=== PATIENT | female | born 1985 | race Two or more races ===

== ENCOUNTER 2024-06-29 07:15 | Inpatient (IN) | payer OTHER ==
[~2024-06-29] VITALS: Ht 165.1 cm; Wt 84.8 kg
[~2024-06-29 07:15] MED LIST: CODE1TAB37 PO; DERMOPLAST TP; NAPR500T14 PO; TYLENOL-CODEINE1 TAB PO; ZITHROMAX500 MG PO
[2024-06-29 08:30] LABS: HEMATOCRIT 42.9 % (36.0-45.00); HEMOGLOBIN 14.4 g/dL (12.0-15.00); MEAN CELL VOLUME 79.8 fL (80.00-100.00); MEAN CORPUSCULAR HEMOGLOBIN 26.7 pg (27.00-32.0); MEAN CORPUSCULAR HGB CONC 33.5 g/dl (32.0-36.0); PLATELET COUNT 258 K/uL (150-450); RED BLOOD COUNT 5.38 M/uL (4.00-6.00); RED CELL DISTRIBUTION WIDTH 14.6 % (11.5-14.5)
[2024-06-29] MEDS ORDERED: ANIMAL CHEWS1 EACH PO (08:43)
[2024-06-29] MEDS ORDERED: METOTREXATO (08:43)
[2024-06-29] MEDS ORDERED: EC-NAPROSYN500 MG PO (08:47)
[2024-06-29 08:51] VITALS: BP 118/80
[2024-06-29 08:56] LABS: INR 0.98; PARTIAL THROMBOPLASTIN TIME 27.7 SECONDS (22.0-34.0); PROTHROMBIN TIME 10.7 SECONDS (9.0-11.5)
[2024-06-29 08:58] LABS: URINE APPEARANCE Clear; URINE BILIRRUBIN Negative (NEGATIVE); URINE BLOOD Negative; URINE COLOR Yellow; URINE GLUCOSE Negative (NEGATIVE); URINE KETONE Negative (NEGATIVE); URINE LEUKOCYTE Negative; URINE NITRATE Negative; URINE PROTEIN Negative (NEGATIVE); URINE UROBILINOGEN 0.2 E.U./dl
[2024-06-29 09:03] LABS: URINE BACTERIA 1757.5 uL (0.0-1933); URINE RBC 3.8 uL (0.0-20.8); URINE WBC 9.4 uL (0.0-23.2)
[2024-06-29 09:10] LABS: ALBUMIN 3.7 gm/dL (3.4-5.0); BILIRUBIN TOTAL 0.43 mg/dL (0.3-1.2); CALCIUM 9.1 mg/dL (8.5-10.1); CREATININE SERUM 0.55 mg/dL (0.55-1.02); GFR 123.05; GLOBULINA 3.6 G/DL (2.4-3.5); POTASSIUM 4.33 mEq/L (3.5-5.1); TOTAL PROTEIN 7.3 gm/dL (6.4-8.2)
[2024-07-07] MEDS ORDERED: METRONIDAZOLE/SODIUM CHLORIDE 500 MG/100 ML PIGGYBACK IV ONE (08:06)
[2024-07-07] MEDS ORDERED: CEFOXITIN SODIUM 2,000 MG VIAL IV ONE (08:07)
[2024-07-07] MEDS ORDERED: POVIDONE-IODINE 118 ML BOTT TOP ONE (10:36)
[2024-07-07] MEDS ORDERED: RINGERS SOLUTION,LACTATED 1,000 ML IV SCH (14:00)
[2024-07-07] MEDS ORDERED: MORPHINE SULFATE 4 MG/ML CARTRIDGE IV PRN (14:00)
[2024-07-07] MEDS ORDERED: KETOROLAC TROMETHAMINE 30 MG VIAL IV PRN (14:00)
[2024-07-07] MEDS ORDERED: MORPHINE SULFATE 4 MG/ML VIAL IV ONE (14:55)
[2024-07-07] MEDS ORDERED: KETOROLAC TROMETHAMINE 30 MG VIAL ONE (15:49)
[2024-07-07 17:58] LABS: HEMATOCRIT 31.4 % (36.0-45.00); HEMOGLOBIN 10.2 g/dL (12.0-15.00); MEAN CELL VOLUME 81.8 fL (80.00-100.00); MEAN CORPUSCULAR HEMOGLOBIN 26.7 pg (27.00-32.0); MEAN CORPUSCULAR HGB CONC 32.6 g/dl (32.0-36.0); PLATELET COUNT 200 K/uL (150-450); RED BLOOD COUNT 3.83 M/uL (4.00-6.00); RED CELL DISTRIBUTION WIDTH 14.2 % (11.5-14.5)
[2024-07-07] MEDS ORDERED: SIMETHICONE 125 MG CAPSULE PO SCH (18:00)
[2024-07-07] MEDS ORDERED: FAMOTIDINE/PF 20 MG/2 ML VIAL IV SCH (21:00)
[2024-07-08 03:55] VITALS: BP 109/78; O2SAT 99
[2024-07-08] MEDS ORDERED: NAPROXEN 500 MG TABLET PO PRN (09:15)
[2024-07-08] MEDS ORDERED: FAMOtidine 20 MG TABLET PO SCH (09:15)
[2024-07-08] MEDS ORDERED: ACETAMINOPHEN WITH CODEINE 1 UDTAB TABLET PO PRN (09:15)
[2024-07-08 12:58] LABS: CALCIUM 7.9 mg/dL (8.5-10.1); CREATININE SERUM 0.78 mg/dL (0.55-1.02); GFR 81.8; POTASSIUM 4.67 mEq/L (3.5-5.1)
[2024-07-08 13:02] LABS: MEAN CELL VOLUME 80.4 fL (80.00-100.00); MEAN CORPUSCULAR HGB CONC 33.8 g/dl (32.0-36.0); PLATELET COUNT 176 K/uL (150-450); RED BLOOD COUNT 2.56 M/uL (4.00-6.00); RED CELL DISTRIBUTION WIDTH 14.3 % (11.5-14.5)
[2024-07-08 13:07] LABS: HEMATOCRIT 20.6 % (36.0-45.00); MEAN CORPUSCULAR HEMOGLOBIN 27.3 pg (27.00-32.0)
[2024-07-08 16:00] VITALS: BP 120/60; O2SAT 96
[2024-07-08 16:43] LABS: HEMATOCRIT 18.7 % (36.0-45.00); MEAN CORPUSCULAR HEMOGLOBIN 27.3 pg (27.00-32.0); MEAN CORPUSCULAR HGB CONC 34.1 g/dl (32.0-36.0); PLATELET COUNT 163 K/uL (150-450); RED BLOOD COUNT 2.34 M/uL (4.00-6.00); RED CELL DISTRIBUTION WIDTH 14.2 % (11.5-14.5)
[2024-07-08 16:51] LABS: HEMOGLOBIN 6.4 g/dL (12.0-15.00)
[2024-07-08] MEDS ORDERED: POVIDONE-IODINE 118 ML BOTT TOP ONE (17:56)
[2024-07-08] MEDS ORDERED: CEFOXITIN SODIUM 2,000 MG in 0.9 % SODIUM CHLORIDE 100 ML IV SCH (18:00)
[2024-07-08] MEDS ORDERED: CEFOXITIN SODIUM 2,000 MG VIAL IV ONE ×2 (18:32→19:26)
[2024-07-08 19:44] LABS: FIBRINOGEN 305 mg/dL (187.0-446.0); INR 1.16; PROTHROMBIN TIME 12.5 SECONDS (9.0-11.5)
[2024-07-08 19:48] LABS: PARTIAL THROMBOPLASTIN TIME < 20.0 SECONDS (22.0-34.0)
[2024-07-08] MEDS ORDERED: THROMBIN,HU/FIBRINOGEN/CALCIUM 10 ML SYRINGE TOP ONE (20:20)
[2024-07-08 23:00] VITALS: BP 129/79; O2SAT 100
[2024-07-08 23:17] LABS: MEAN CELL VOLUME 83.3 fL (80.00-100.00); MEAN CORPUSCULAR HGB CONC 34.3 g/dl (32.0-36.0); RED BLOOD COUNT 2.29 M/uL (4.00-6.00); RED CELL DISTRIBUTION WIDTH 14.5 % (11.5-14.5)
[2024-07-08] MEDS ORDERED: PIPERACILLIN/TAZOBACTAM SODIUM 3.375 GM VIAL IV STA (23:21)
[2024-07-08 23:38] LABS: HEMATOCRIT 19.1 % (36.0-45.00); MEAN CORPUSCULAR HEMOGLOBIN 28.3 pg (27.00-32.0); PLATELET COUNT 130 K/uL (150-450)
[2024-07-08] MEDS ORDERED: PROPOFOL 10,000 MCG/ML VIAL IV SCH (23:45)
[2024-07-08 23:46] LABS: HEMOGLOBIN 6.5 g/dL (12.0-15.00)
[2024-07-09] VITALS (12 sets, daily range): BP systolic 118–138; BP diastolic 60–82; O2SAT 100
[2024-07-09] MEDS ORDERED: CALCIUM GLUCONATE 100 MG/ML VIAL IV ONE ×2 (00:15→17:45)
[2024-07-09 06:18] LABS: ABG PH 7.424 (7.35-7.45); ABG pCO2 39.1 mmHg (35-45); BASE EXCESS 0.7 mmol/l; SaO2 99.9 %; Tco2 26.2 mmol/l; allen test SATISFACTORY; o2 100 %; puncture site RADIAL RIGHT
[2024-07-09] MEDS ORDERED: PIPERACILLIN/TAZOBACTAM SODIUM 3.375 GM VIAL IV SCH (08:00)
[2024-07-09 09:44] LABS: MEAN CORPUSCULAR HGB CONC 34.3 g/dl (32.0-36.0); RED BLOOD COUNT 2.25 M/uL (4.00-6.00); RED CELL DISTRIBUTION WIDTH 15.1 % (11.5-14.5)
[2024-07-09 09:45] LABS: HEMATOCRIT 18.9 % (36.0-45.00); MEAN CORPUSCULAR HEMOGLOBIN 28.8 pg (27.00-32.0)
[2024-07-09 09:46] LABS: HEMOGLOBIN 6.5 g/dL (12.0-15.00); PLATELET COUNT 93 K/uL (150-450)
[2024-07-09 10:02] LABS: INR 1.12; PARTIAL THROMBOPLASTIN TIME 26.7 SECONDS (22.0-34.0); PROTHROMBIN TIME 12.1 SECONDS (9.0-11.5)
[2024-07-09 10:31] LABS: ABG PO2 252.4 mmHg (80-100); ABG pCO2 33.2 mmHg (35-45); BASE EXCESS 2.7 mmol/l; BICARBONATE 25.3 mmol/l (23-25); SaO2 99.9 %; Tco2 26.3 mmol/l
[2024-07-09] MEDS ORDERED: THROMBIN,HU/FIBRINOGEN/CALCIUM 10 ML SYRINGE TOP ONE (10:33)
[2024-07-09] MEDS ORDERED: THROMBIN,HU/FIBRINOGEN/CALCIUM 4 ML SYRINGE TOP ONE (10:39)
[2024-07-09 10:43] LABS: allen test SATISFACTORY; o2 60 %; puncture site RADIAL RIGHT
[2024-07-09 14:15] LABS: MEAN CELL VOLUME 83.3 fL (80.00-100.00); MEAN CORPUSCULAR HGB CONC 34.5 g/dl (32.0-36.0); RED BLOOD COUNT 1.88 M/uL (4.00-6.00)
[2024-07-09 14:16] LABS: HEMATOCRIT 15.6 % (36.0-45.00); HEMOGLOBIN 5.4 g/dL (12.0-15.00); MEAN CORPUSCULAR HEMOGLOBIN 28.7 pg (27.00-32.0); PLATELET COUNT 60 K/uL (150-450)
[2024-07-09 14:29] LABS: INR 1.16; PARTIAL THROMBOPLASTIN TIME 30.7 SECONDS (22.0-34.0); PROTHROMBIN TIME 12.5 SECONDS (9.0-11.5)
[2024-07-09 14:38] LABS: ALBUMIN 1.8 gm/dL (3.4-5.0); BILIRUBIN TOTAL 1.42 mg/dL (0.3-1.2); CALCIUM 7.1 mg/dL (8.5-10.1); CREATININE SERUM 0.43 mg/dL (0.55-1.02); GFR 162.63; GLOBULINA 1.8 G/DL (2.4-3.5); POTASSIUM 3.78 mEq/L (3.5-5.1); TOTAL PROTEIN 3.6 gm/dL (6.4-8.2)
[2024-07-09] MEDS ORDERED: PROPOFOL 100 ML IV SCH (15:30)
[2024-07-10] VITALS (12 sets, daily range): BP systolic 105–135; BP diastolic 62–83; O2SAT 99–100
[2024-07-10 10:07] LABS: ABG PH 7.471 (7.35-7.45); ABG PO2 225.4 mmHg (80-100); ABG pCO2 40.9 mmHg (35-45); BASE EXCESS 5.1 mmol/l; BICARBONATE 29.2 mmol/l (23-25); SaO2 99.8 %; Tco2 30.4 mmol/l
[2024-07-10] MEDS ORDERED: HETASTARCH IN 0.9 % NACL 500 ML PLAST..BAG IV ONE (10:36)
[2024-07-10] MEDS ORDERED: CHLORHEXIDINE GLUCONATE 120 ML BOTTLE TOP ONE (11:01)
[2024-07-10 12:07] LABS: allen test SATISFACTORY; o2 50 %; puncture site RADIAL LEFT
[2024-07-10 14:40] LABS: MEAN CELL VOLUME 82.7 fL (80.00-100.00); MEAN CORPUSCULAR HGB CONC 34.7 g/dl (32.0-36.0); RED BLOOD COUNT 2.83 M/uL (4.00-6.00); RED CELL DISTRIBUTION WIDTH 15.2 % (11.5-14.5)
[2024-07-10 14:41] LABS: HEMATOCRIT 23.4 % (36.0-45.00); HEMOGLOBIN 8.1 g/dL (12.0-15.00); MEAN CORPUSCULAR HEMOGLOBIN 28.6 pg (27.00-32.0); PLATELET COUNT 112 K/uL (150-450)
[2024-07-10 15:06] LABS: ABG PH 7.455 (7.35-7.45); ABG PO2 208.8 mmHg (80-100); ABG pCO2 43.3 mmHg (35-45); BASE EXCESS 5.2 mmol/l; BICARBONATE 29.8 mmol/l (23-25); SaO2 99.8 %; Tco2 31.1 mmol/l
[2024-07-10 15:13] LABS: o2 50 %
[2024-07-10 15:13] LABS: ALBUMIN 2.2 gm/dL (3.4-5.0); BILIRUBIN TOTAL 1.02 mg/dL (0.3-1.2); CALCIUM 7.7 mg/dL (8.5-10.1); CREATININE SERUM 0.31 mg/dL (0.55-1.02); GFR 237.24; GLOBULINA 2.4 G/DL (2.4-3.5); POTASSIUM 3.24 mEq/L (3.5-5.1); TOTAL PROTEIN 4.6 gm/dL (6.4-8.2)
[2024-07-10 15:14] LABS: allen test SATISFACTORY; puncture site RADIAL RIGHT
[2024-07-10 15:29] LABS: INR 1.03; PARTIAL THROMBOPLASTIN TIME 27.6 SECONDS (22.0-34.0); PROTHROMBIN TIME 11.2 SECONDS (9.0-11.5)
[2024-07-10] MEDS ORDERED: SOD FERRIC GLUC COMPLX/SUCROSE 125 MG in 0.9 % SODIUM CHLORIDE 100 ML IV SCH (17:00)
[2024-07-10] MEDS ORDERED: LEVALBUTEROL HCL 0.63 MG/3 ML SOLUTION IH SCH (17:00)
[2024-07-10 17:21] LABS: ABG PH 7.422 (7.35-7.45); ABG PO2 144.4 mmHg (80-100); ABG pCO2 47.2 mmHg (35-45); BASE EXCESS 4.7 mmol/l; BICARBONATE 30.1 mmol/l (23-25); SaO2 99.3 %; Tco2 31.5 mmol/l
[2024-07-10 17:29] LABS: allen test SATISFACTORY; o2 50 %; puncture site RADIAL RIGHT
[2024-07-10] MEDS ORDERED: POTASSIUM CHLORIDE IN WATER 40 MEQ/100 ML PIGGYBAG IV SCH (17:40)
[2024-07-10] MEDS ORDERED: POTASSIUM CHLORIDE IN WATER 40 MEQ/100 ML PIGGYBAG IV ONE ×2 (19:00→23:59)
[2024-07-10] MEDS ORDERED: MORPHINE SULFATE 4 MG/ML CARTRIDGE IV PRN (19:30)
[2024-07-11 00:08] LABS: HEMATOCRIT 25.2 % (36.0-45.00); MEAN CELL VOLUME 83.4 fL (80.00-100.00); MEAN CORPUSCULAR HGB CONC 34.5 g/dl (32.0-36.0); RED BLOOD COUNT 3.02 M/uL (4.00-6.00); RED CELL DISTRIBUTION WIDTH 15.3 % (11.5-14.5)
[2024-07-11 00:09] LABS: HEMOGLOBIN 8.7 g/dL (12.0-15.00); MEAN CORPUSCULAR HEMOGLOBIN 28.8 pg (27.00-32.0); PLATELET COUNT 121 K/uL (150-450)
[2024-07-11 03:54] VITALS: BP 113/65; O2SAT 100
[2024-07-11 07:07] LABS: MEAN CELL VOLUME 84.4 fL (80.00-100.00); MEAN CORPUSCULAR HGB CONC 34.9 g/dl (32.0-36.0); PLATELET COUNT 174 K/uL (150-450); RED BLOOD COUNT 2.96 M/uL (4.00-6.00); RED CELL DISTRIBUTION WIDTH 15.8 % (11.5-14.5)
[2024-07-11 07:10] LABS: HEMOGLOBIN 8.7 g/dL (12.0-15.00); MEAN CORPUSCULAR HEMOGLOBIN 29.3 pg (27.00-32.0)
[2024-07-11 07:14] VITALS: BP 117/70; O2SAT 98
[2024-07-11 07:45] LABS: ALBUMIN 2.1 gm/dL (3.4-5.0); BILIRUBIN TOTAL 0.75 mg/dL (0.3-1.2); CALCIUM 7.9 mg/dL (8.5-10.1); CREATININE SERUM 0.24 mg/dL (0.55-1.02); GFR 318.75; GLOBULINA 2.5 G/DL (2.4-3.5); POTASSIUM 4.15 mEq/L (3.5-5.1); TOTAL PROTEIN 4.6 gm/dL (6.4-8.2)
[2024-07-11] MEDS ORDERED: FAMOTIDINE/PF 20 MG/2 ML VIAL IV SCH (09:01)
[2024-07-11] MEDS ORDERED: ACETAMINOPHEN WITH CODEINE 1 UDTAB TABLET PO PRN (09:15)
[2024-07-11 12:00] VITALS: BP 122/70; O2SAT 100
[2024-07-11] MEDS ORDERED: MENTHOL/CETYLPYRD CL 1 LOZENGE MM PRN (12:30)
[2024-07-11] MEDS ORDERED: SIMETHICONE 125 MG CAPSULE PO SCH (13:00)
[2024-07-11 15:02] VITALS: BP 122/70; O2SAT 100
[2024-07-11 17:06] LABS: HEMATOCRIT 24.9 % (36.0-45.00); MEAN CELL VOLUME 84.6 fL (80.00-100.00); MEAN CORPUSCULAR HGB CONC 34.5 g/dl (32.0-36.0); PLATELET COUNT 142 K/uL (150-450); RED BLOOD COUNT 2.95 M/uL (4.00-6.00); RED CELL DISTRIBUTION WIDTH 15.4 % (11.5-14.5)
[2024-07-11 17:09] LABS: HEMOGLOBIN 8.6 g/dL (12.0-15.00); MEAN CORPUSCULAR HEMOGLOBIN 29.1 pg (27.00-32.0)
[2024-07-11 20:00] VITALS: BP 126/77; O2SAT 100
[2024-07-11 23:40] VITALS: BP 110/64; O2SAT 100
[2024-07-12 04:00] VITALS: BP 115/67; O2SAT 100
[2024-07-12 07:55] VITALS: BP 109/70; O2SAT 100
[2024-07-12 12:00] VITALS: BP 127/79; O2SAT 100
[2024-07-12] MEDS ORDERED: LOPERAMIDE HCL 2 MG CAPSULE PO PRN (13:45)
[2024-07-12 14:51] LABS: HEMATOCRIT 26.3 % (36.0-45.00); HEMOGLOBIN 9.2 g/dL (12.0-15.00); MEAN CELL VOLUME 84.7 fL (80.00-100.00); MEAN CORPUSCULAR HEMOGLOBIN 29.5 pg (27.00-32.0); MEAN CORPUSCULAR HGB CONC 34.8 g/dl (32.0-36.0); PLATELET COUNT 168 K/uL (150-450); RED BLOOD COUNT 3.11 M/uL (4.00-6.00); RED CELL DISTRIBUTION WIDTH 15.8 % (11.5-14.5)
[2024-07-12 16:03] VITALS: BP 133/72; O2SAT 100
[2024-07-12 18:39] LABS: ALBUMIN 2.1 gm/dL (3.4-5.0); BILIRUBIN TOTAL 0.81 mg/dL (0.3-1.2); CALCIUM 8.2 mg/dL (8.5-10.1); GFR 266.81; GLOBULINA 2.7 G/DL (2.4-3.5); POTASSIUM 3.93 mEq/L (3.5-5.1); TOTAL PROTEIN 4.8 gm/dL (6.4-8.2)
[2024-07-12 18:41] LABS: CREATININE SERUM 0.28 mg/dL (0.55-1.02)
[2024-07-12 21:23] VITALS: BP 130/77; O2SAT 99
[2024-07-12 21:32] VITALS: BP 120/73; O2SAT 90
[2024-07-13] VITALS: BP 105/62
[2024-07-13 08:10] VITALS: BP 126/69
[2024-07-13] MEDS ORDERED: LACTOBACILLUS ACIDOPHILUS 1 CAP CAP PO SCH (13:00)
[2024-07-13 16:10] VITALS: BP 114/74
[2024-07-13 20:00] VITALS: BP 149/78
[2024-07-13] MEDS ORDERED: ACETAMINOPHEN 325 MG TABLET PO ONE (21:15)
[2024-07-13] MEDS ORDERED: ACETAMINOPHEN 500 MG GEL..CAP PO PRN (21:15)
[2024-07-13 23:26] LABS: ALBUMIN 2.1 gm/dL (3.4-5.0); BILIRUBIN TOTAL 0.69 mg/dL (0.3-1.2); CALCIUM 7.9 mg/dL (8.5-10.1); CREATININE SERUM 0.4 mg/dL (0.55-1.02); GFR 176.78; GLOBULINA 2.8 G/DL (2.4-3.5); POTASSIUM 3.83 mEq/L (3.5-5.1); TOTAL PROTEIN 4.9 gm/dL (6.4-8.2)
[2024-07-14] VITALS: BP 113/70
[2024-07-14 01:59] LABS: HEMATOCRIT 25.8 % (36.0-45.00); MEAN CELL VOLUME 85.1 fL (80.00-100.00); MEAN CORPUSCULAR HGB CONC 34.2 g/dl (32.0-36.0); PLATELET COUNT 200 K/uL (150-450); RED BLOOD COUNT 3.03 M/uL (4.00-6.00); RED CELL DISTRIBUTION WIDTH 15.4 % (11.5-14.5)
[2024-07-14 02:04] LABS: HEMOGLOBIN 8.8 g/dL (12.0-15.00)
[2024-07-14 08:21] VITALS: BP 115/72
[2024-07-14] MEDS ORDERED: MEROPENEM 500 MG/VIAL VIAL IV SCH (14:33)
[2024-07-14 15:43] VITALS: BP 115/73
[2024-07-14] MEDS ORDERED: MIDAZOLAM HCL 2 MG/2 ML VIAL IV PUSH ONE (16:45)
[2024-07-14] MEDS ORDERED: fentaNYL CITRATE 50 MCG/ML AMPUL IV PUSH ONE (16:45)
[2024-07-14] MEDS ORDERED: VANCOMYCIN HCL 5 MG/ML REDILUIDO IV SCH (17:00)
[2024-07-14 20:48] VITALS: BP 132/82
[2024-07-14] MEDS ORDERED: ACETAMINOPHEN WITH CODEINE 1 UDTAB TABLET PO PRN (22:45)
[2024-07-14 23:35] LABS: CALCIUM 8.3 mg/dL (8.5-10.1); CREATININE SERUM 0.32 mg/dL (0.55-1.02); GFR 228.7; POTASSIUM 3.65 mEq/L (3.5-5.1)
[2024-07-15 00:48] VITALS: BP 99/56
[2024-07-15 05:47] VITALS: BP 115/76; O2SAT 100
[2024-07-15 06:25] LABS: HEMATOCRIT 27.1 % (36.0-45.00); HEMOGLOBIN 9.2 g/dL (12.0-15.00); MEAN CORPUSCULAR HEMOGLOBIN 29.1 pg (27.00-32.0); MEAN CORPUSCULAR HGB CONC 33.9 g/dl (32.0-36.0); PLATELET COUNT 236 K/uL (150-450); RED BLOOD COUNT 3.15 M/uL (4.00-6.00)
[2024-07-15 07:04] LABS: ALBUMIN 2.3 gm/dL (3.4-5.0); BILIRUBIN TOTAL 0.73 mg/dL (0.3-1.2); CALCIUM 8.2 mg/dL (8.5-10.1); CREATININE SERUM 0.31 mg/dL (0.55-1.02); GFR 237.24; PHOSPHOROUS 4.3 mg/dL (2.5-4.9); POTASSIUM 3.91 mEq/L (3.5-5.1); TOTAL PROTEIN 5.3 gm/dL (6.4-8.2)
[2024-07-15 07:09] LABS: C-REACTIVE PROTEIN 10.1 MG/DL (0.00-0.29)
[2024-07-15 08:23] VITALS: BP 108/67
[2024-07-15 16:04] VITALS: BP 103/64
[2024-07-15 20:50] VITALS: BP 109/68
[2024-07-15] MEDS ORDERED: VANCOMYCIN HCL 5 MG/ML REDILUIDO IV SCH (21:00)
[2024-07-16] VITALS: BP 103/62; O2SAT 99
[2024-07-16 07:50] LABS: CALCIUM 8.4 mg/dL (8.5-10.1); GFR 278.24; POTASSIUM 4.19 mEq/L (3.5-5.1)
[2024-07-16 07:51] LABS: CREATININE SERUM 0.27 mg/dL (0.55-1.02)
[2024-07-16 08:28] VITALS: BP 105/61
[2024-07-16 15:02] VITALS: BP 118/70
[2024-07-17] VITALS: BP 118/68
[2024-07-17 08:03] LABS: ALBUMIN 2.3 gm/dL (3.4-5.0); BILIRUBIN TOTAL 0.52 mg/dL (0.3-1.2); CALCIUM 8.4 mg/dL (8.5-10.1); CREATININE SERUM 0.36 mg/dL (0.55-1.02); GFR 199.64; GLOBULINA 2.9 G/DL (2.4-3.5); POTASSIUM 4.51 mEq/L (3.5-5.1); TOTAL PROTEIN 5.2 gm/dL (6.4-8.2)
[2024-07-17 08:17] VITALS: BP 119/75
[2024-07-17 08:44] LABS: HEMOGLOBIN 10.1 g/dL (12.0-15.00); MEAN CELL VOLUME 86.2 fL (80.00-100.00); MEAN CORPUSCULAR HEMOGLOBIN 28.2 pg (27.00-32.0); MEAN CORPUSCULAR HGB CONC 32.7 g/dl (32.0-36.0); PLATELET COUNT 309 K/uL (150-450); RED CELL DISTRIBUTION WIDTH 14.9 % (11.5-14.5)
[2024-07-17] MEDS ORDERED: ACETAMINOPHEN WITH CODEINE 1 UDTAB TABLET PO PRN (12:45)
[2024-07-17 15:54] VITALS: BP 124/75
[2024-07-17] MEDS ORDERED: SOD FERRIC GLUC COMPLX/SUCROSE 125 MG in 0.9 % SODIUM CHLORIDE 100 ML IV SCH (17:00)
[2024-07-18 00:59] VITALS: BP 123/64
[2024-07-18] MEDS ORDERED: VANCOMYCIN HCL 5 MG/ML REDILUIDO IV SCH (01:00)
[2024-07-18 06:28] LABS: HEMATOCRIT 29.1 % (36.0-45.00); HEMOGLOBIN 9.7 g/dL (12.0-15.00); MEAN CELL VOLUME 85.4 fL (80.00-100.00); MEAN CORPUSCULAR HEMOGLOBIN 28.6 pg (27.00-32.0); MEAN CORPUSCULAR HGB CONC 33.4 g/dl (32.0-36.0); PLATELET COUNT 301 K/uL (150-450); RED BLOOD COUNT 3.41 M/uL (4.00-6.00); RED CELL DISTRIBUTION WIDTH 15.1 % (11.5-14.5)
[2024-07-18 06:56] LABS: ALBUMIN 2.4 gm/dL (3.4-5.0); BILIRUBIN TOTAL 0.57 mg/dL (0.3-1.2); CALCIUM 8.1 mg/dL (8.5-10.1); CREATININE SERUM 0.3 mg/dL (0.55-1.02); GFR 246.39; GLOBULINA 3.1 G/DL (2.4-3.5); POTASSIUM 4.25 mEq/L (3.5-5.1); TOTAL PROTEIN 5.5 gm/dL (6.4-8.2)
[2024-07-18 06:59] LABS: ERYTHROCYTE SEDIMENTATION RATE 51 mm/hr
[2024-07-18 07:15] LABS: C-REACTIVE PROTEIN 9.65 MG/DL (0.00-0.29)
[2024-07-18 08:00] VITALS: BP 100/58
[2024-07-18 16:08] VITALS: BP 107/68
[2024-07-18 21:24] VITALS: BP 102/66
[2024-07-19 00:30] VITALS: BP 108/67
[2024-07-19 08:40] VITALS: BP 108/67
[2024-07-19 15:53] VITALS: BP 97/59
[2024-07-19] MEDS ORDERED: LEVALBUTEROL HCL 0.63 MG/3 ML SOLUTION IH SCH (17:00)
[2024-07-19 20:00] VITALS: BP 117/75
[2024-07-20] MEDS ORDERED: VANCOMYCIN HCL 5 MG/ML REDILUIDO IV SCH (01:00)
[2024-07-20 01:29] VITALS: BP 114/73; BP 126/75
[2024-07-20] MEDS ORDERED: ACETAMINOPHEN WITH CODEINE 1 UDTAB TABLET PO PRN (02:30)
[2024-07-20 04:00] VITALS: BP 105/67
[2024-07-20 08:46] VITALS: BP 97/60
[2024-07-20 15:51] VITALS: BP 100/63
[2024-07-20 20:00] VITALS: BP 103/68
[2024-07-20] MEDS ORDERED: DOCUSATE SODIUM 100MG CAP PO STA (20:55)
[2024-07-20] MEDS ORDERED: DOCUSATE SODIUM 100MG CAP PO SCH (21:00)
[2024-07-20 23:48] VITALS: BP 91/53
[2024-07-21 04:55] VITALS: BP 107/66
[2024-07-21 08:00] VITALS: BP 108/50
[2024-07-21] MEDS ORDERED: POLYETHYLENE GLYCOL 3350 17 GM BLIST.PACK PO SCH (12:56)
[2024-07-21 17:19] VITALS: BP 112/65
[2024-07-22 00:38] VITALS: BP 103/67
[2024-07-22 04:30] VITALS: BP 110/73
[2024-07-22 06:12] LABS: HEMATOCRIT 32.1 % (36.0-45.00); HEMOGLOBIN 10.9 g/dL (12.0-15.00); MEAN CELL VOLUME 84.7 fL (80.00-100.00); MEAN CORPUSCULAR HEMOGLOBIN 28.7 pg (27.00-32.0); MEAN CORPUSCULAR HGB CONC 33.9 g/dl (32.0-36.0); PLATELET COUNT 397 K/uL (150-450); RED BLOOD COUNT 3.79 M/uL (4.00-6.00); RED CELL DISTRIBUTION WIDTH 15.3 % (11.5-14.5)
[2024-07-22 06:49] LABS: ALBUMIN 2.7 gm/dL (3.4-5.0); BILIRUBIN TOTAL 0.53 mg/dL (0.3-1.2); CALCIUM 8.7 mg/dL (8.5-10.1); CREATININE SERUM 0.34 mg/dL (0.55-1.02); GFR 213.25; GLOBULINA 3.1 G/DL (2.4-3.5); MAGNESIUM 1.9 mg/dL (1.8-2.4); PHOSPHOROUS 3.6 mg/dL (2.5-4.9); POTASSIUM 4.32 mEq/L (3.5-5.1); TOTAL PROTEIN 5.8 gm/dL (6.4-8.2)
[2024-07-22 06:52] LABS: C-REACTIVE PROTEIN 1.75 MG/DL (0.00-0.29)
[2024-07-22] MEDS ORDERED: COLACE100 MG PO (09:17)
[2024-07-22] MEDS ORDERED: POLY119PG PO (09:18)
[2024-07-22] MEDS ORDERED: ACETAMINOPHEN-1 EAC2 PO (09:18)
[2024-07-22] MEDS ORDERED: NAPROXEN500 MG PO (09:19)
[2024-07-22] MEDS ORDERED: MAXFE CAPLET1 EAC1 PO (09:19)
[2024-07-22] MEDS ORDERED: AMOX-CLAV 875-1 EACH PO (09:26)
== END 2024-07-22 11:39 | disposition home or self-care (01) | DRG 742 ==
LOC: ICU 07-07 06:28 → SURG 07-07 06:28 → O/R 07-07 06:28 → SURH 07-07 07:00 → SURG 07-07 15:15 → ICU 07-08 23:03 → OB/GYN 07-12 19:26
PROVIDERS: Internal Medicine; Internal Medicine Infectious Disease; ADMIT Obstetrics & Gynecology; ATTEND Obstetrics & Gynecology
PROC: 0UT70ZZ Resection of Bilateral Fallopian Tubes, Open Approach (ICD-10-PCS; 2024-07-07)
PROC: 0DNU0ZZ Release Omentum, Open Approach (ICD-10-PCS; 2024-07-07)
PROC: 0TJB8ZZ Inspection of Bladder, Via Natural or Artificial Opening Endoscopic (ICD-10-PCS; 2024-07-07)
PROC: 0UT90ZZ Resection of Uterus, Open Approach (ICD-10-PCS; principal; 2024-07-07 07:00)
PROC: BW21ZZZ Computerized Tomography (CT Scan) of Abdomen and Pelvis (ICD-10-PCS; 2024-07-08)
PROC: 30233K1 Transfusion of Nonautologous Frozen Plasma into Peripheral Vein, Percutaneous Approach (ICD-10-PCS; 2024-07-08)
PROC: 30233N1 Transfusion of Nonautologous Red Blood Cells into Peripheral Vein, Percutaneous Approach (ICD-10-PCS; 2024-07-08)
PROC: 30233R1 Transfusion of Nonautologous Platelets into Peripheral Vein, Percutaneous Approach (ICD-10-PCS; 2024-07-09)
PROC: 30233M1 Transfusion of Nonautologous Plasma Cryoprecipitate into Peripheral Vein, Percutaneous Approach (ICD-10-PCS; 2024-07-09)
PROC: 0BH17EZ Insertion of Endotracheal Airway into Trachea, Via Natural or Artificial Opening (ICD-10-PCS; 2024-07-09)
PROC: 0DH673Z Insertion of Infusion Device into Stomach, Via Natural or Artificial Opening (ICD-10-PCS; 2024-07-09)
PROC: 02HV33Z Insertion of Infusion Device into Superior Vena Cava, Percutaneous Approach (ICD-10-PCS; 2024-07-09)
PROC: 4A033R1 Measurement of Arterial Saturation, Peripheral, Percutaneous Approach (ICD-10-PCS; 2024-07-09)
PROC: 0W3J0ZZ Control Bleeding in Pelvic Cavity, Open Approach (ICD-10-PCS; 2024-07-09)
PROC: 0WJH0ZZ Inspection of Retroperitoneum, Open Approach (ICD-10-PCS; 2024-07-09)
PROC: 3E0F7GC Introduction of Other Therapeutic Substance into Respiratory Tract, Via Natural or Artificial Opening (ICD-10-PCS; 2024-07-10)
PROC: 0W9H3ZZ Drainage of Retroperitoneum, Percutaneous Approach (ICD-10-PCS; 2024-07-14)
PROC: BW21Y0Z Computerized Tomography (CT Scan) of Abdomen and Pelvis using Other Contrast, Unenhanced and Enhanced (ICD-10-PCS; 2024-07-14)
PROC: B24DZZZ Ultrasonography of Pediatric Heart (ICD-10-PCS; 2024-07-14)
PROC: BW2GZZZ Computerized Tomography (CT Scan) of Pelvic Region (ICD-10-PCS; 2024-07-21)
DX: D25.2 Subserosal leiomyoma of uterus (principal); J95.821 Acute postprocedural respiratory failure; K66.1 Hemoperitoneum; K68.3 Retroperitoneal hematoma; D62 Acute posthemorrhagic anemia; D69.3 Immune thrombocytopenic purpura; N99.820 Postprocedural hemorrhage of a genitourinary system organ or structure following a genitourinary system procedure; N99.840 Postprocedural hematoma of a genitourinary system organ or structure following a genitourinary system procedure; N80.03 Adenomyosis of the uterus; N81.11 Cystocele, midline; D25.1 Intramural leiomyoma of uterus; N73.6 Female pelvic peritoneal adhesions (postinfective); N92.0 Excessive and frequent menstruation with regular cycle; R10.2 Pelvic and perineal pain; R50.82 Postprocedural fever